=== PATIENT | female | born 1995 | race African-American/Black ===

== ENCOUNTER 2016-10-18 08:54 | Emergency (ER) | payer OTHER ==
[~2016-10-18] VITALS: Ht 165.1 cm; Wt 68.5 kg
[2016-10-18] MEDS ORDERED: NEXP1IMP SC (09:18)
[2016-10-18 11:10] LABS: BASO % 0.5 % (0.0-1.0); EOS # 0.1 K/mm3 (0.0-0.50); EOS % 2.5 % (0.0-3.0); LARGE UNSTAINED CELL # 0.1 K/mm3 (0.0-0.4); LARGE UNSTAINED CELL % 3.1 % (0.0-4.0); LYMPH # 1.8 K/mm3 (1.5-6.5); LYMPH % 41.8 % (24.0-44.0); MEAN CORPUSCULAR HEMOGLOBIN 28.1 pg (27.0-33.0); MEAN CORPUSCULAR HGB CONC 31.1 g/dl (32.0-36.5); MEAN CORPUSCULAR VOLUME 90.4 fl (80.0-96.0); MONO # 0.3 K/mm3 (0.0-0.8); MONO % 8.2 % (0.0-5.0); NEUTROPHILS # 1.7 K/mm3 (1.8-7.7); NEUTROPHILS % 43.9 % (36.0-66.0); PLATELET COUNT, AUTOMATED 339 k/mm3 (150-450); RED CELL DISTRIBUTION WIDTH 12.4 % (11.5-14.5); WHITE BLOOD COUNT 3.9 K/mm3 (4.0-10.0)
[2016-10-18 11:19] LABS: CONTROL LINE HCG INT CTR LINE PRESENT
[2016-10-18 11:27] LABS: ALBUMIN 4.1 GM/DL (3.2-5.2); ALBUMIN/GLOBULIN RATIO 1.14 (1.00-1.93); ALKALINE PHOSPHATASE 54 U/L (45-117); ALT/SGPT 65 U/L (12-78); ANION GAP 5 MEQ/L (8-16); AST/SGOT 29 U/L (15-37); BILIRUBIN,DIRECT 0.2 MG/DL (0.0-0.2); BILIRUBIN,TOTAL 0.6 MG/DL (0.2-1.0); BLOOD UREA NITROGEN 12 MG/DL (7-18); CALCIUM LEVEL 9.2 MG/DL (8.5-10.1); CARBON DIOXIDE LEVEL 31 MEQ/L (21-32); CHLORIDE LEVEL 105 MEQ/L (98-107); CREATININE FOR GFR 0.88 MG/DL (0.55-1.02); GLOMERULAR FILTRATION RATE > 60.0 (>60); GLUCOSE, FASTING 85 MG/DL (70-105); POTASSIUM SERUM 4.1 MEQ/L (3.5-5.1); SODIUM LEVEL 141 MEQ/L (136-145); TOTAL PROTEIN 7.7 GM/DL (6.4-8.2)
--- NOTE | 2016-10-18 11:35 | REP ---
LIMITED PELVIC ULTRASOUND: Real-time sonographic evaluation of the right lower quadrant performed to evaluate for possible appendicitis. The appendix could not be visualized and appendicitis cannot be excluded. The right ovary could not be visualized. No definite free fluid or fluid collection is seen. Further evaluation may be made with CT exam of the abdomen and pelvis if clinically indicated. Signed by Grant Quezada MD 10/18/2016 05:25 P
--- NOTE | 2016-10-18 12:51 | REP ---
Pelvic ultrasound including transabdominal, endovaginal and Doppler ultrasound assessment: The bladder is poorly distended. The uterus is retroverted and normal size measuring 6.8 x 4.0 x 5.2 cm. The endometrium is not thickened measuring 5.8 mm. There is a trace of endometrial fluid in the endometrial canal. The right ovary contains a 2.1 cm cyst. There is a moderate volume of free fluid in the pelvis. Including the cyst in the right ovary is upper normal size measuring 4.5 x 1.7 x 3.5 cm. The left ovary is normal size measuring 3.5 x 2.1 x 2.3 cm. There is no dominant left ovarian mass or cyst. With Doppler assessment there is vascular flow in both ovaries. The Doppler resistive index of the intraparenchymal arteries of the right ovary is 0.61 and of the left ovary is 0.56. Impression: 2.1 cm right ovarian follicle and moderate volume of free fluid in the cul-de-sac. Retroverted uterus. Signed by Grant Nelson MD 10/18/2016 12:43 P
[2016-10-18] MEDS ORDERED: ZOFR4TAB3 PO (12:52)
[2016-10-18] MEDS ORDERED: IBUP80TA PO (12:52)
[2016-10-18 12:55] VITALS: BP 121/78
== END 2016-10-18 13:02 | disposition home or self-care (01) ==
LOC: M ED 11:09
DX: R10.2 Pelvic and perineal pain (principal); N83.01 Follicular cyst of right ovary; N85.4 Malposition of uterus; R11.2 Nausea with vomiting, unspecified; R19.7 Diarrhea, unspecified; Z79.3 Long term (current) use of hormonal contraceptives

== ENCOUNTER 2019-03-29 00:51 | Emergency (ER) | payer OTHER ==
[~2019-03-29] VITALS: Ht 165.1 cm; Wt 73.8 kg
[~2019-03-29 00:51] MED LIST: IBUP80TA PO; NEXP1IMP SC; ZOFR4TAB14 PO
[2019-03-29] MEDS ORDERED: KETOROLAC 30 MG/ML VIAL (J1885) IV ONE (01:30)
[2019-03-29] MEDS ORDERED: NS 1,000 ML IV ONE (01:30)
[2019-03-29] MEDS ORDERED: ONDANSETRON 4MG/2ML VIAL (J2405) IV ONE (01:30)
[2019-03-29 01:35] LABS: BASO # 0.1 10^3/uL (0.0-0.2); BASO % 0.6 % (0.0-1.0); EOS # 0.3 10^3/uL (0.0-0.5); EOS % 3.9 % (0.0-3.0); HEMATOCRIT 39.2 % (36.0-47.0); HEMOGLOBIN 12.4 g/dl (12.0-15.5); LYMPH # 2.5 10^3/uL (1.5-5.0); LYMPH % 28.2 % (24.0-44.0); MEAN CORPUSCULAR HEMOGLOBIN 28.1 pg (27.0-33.0); MEAN CORPUSCULAR HGB CONC 31.6 g/dl (32.0-36.5); MEAN CORPUSCULAR VOLUME 88.9 fl (80.0-96.0); MONO # 0.8 10^3/uL (0.0-0.8); MONO % 8.8 % (0.0-5.0); NEUTROPHILS # 5.1 10^3/uL (1.5-8.5); NEUTROPHILS % 58.3 % (36.0-66.0); PLATELET COUNT, AUTOMATED 370 10^3/uL (150-450); RED BLOOD COUNT 4.41 10^6/uL (4.00-5.40); WHITE BLOOD COUNT 8.8 10^3/uL (4.0-10.0)
[2019-03-29 01:54] LABS: ALBUMIN 3.7 GM/DL (3.2-5.2); BILIRUBIN,DIRECT 0.1 MG/DL (0.0-0.2); BILIRUBIN,TOTAL 0.3 MG/DL (0.2-1.0); TOTAL PROTEIN 7.1 GM/DL (6.4-8.2)
--- NOTE | 2019-03-29 02:58 | REPVR ---
PROCEDURE INFORMATION: Exam: CT Abdomen and pelvis without contrast Exam date and time: 03/29/2019 1:49 AM Clinical history: 24 years old, female; Abdominal pain; Flank; Left; Additional info: Left flank pain TECHNIQUE: Imaging protocol: Computed tomography of the abdomen and pelvis without contrast. Radiation optimization: All CT scans at this facility use at least one of these dose optimization techniques: automated exposure control; mA and/or kV adjustment per patient size (includes targeted exams where dose is matched to clinical indication); or iterative reconstruction. COMPARISON: US PELVIC NON-OB COMPLETE 10/18/2016 11:58 AM FINDINGS: Liver: Normal. No mass. Gallbladder and bile ducts: Normal. No calcified stones. No ductal dilation. Pancreas: Normal. No ductal dilation. Spleen: Normal. No splenomegaly. Adrenals: Normal. No mass. Kidneys and ureters: Bilateral nonobstructive nephrolithiasis. No hydronephrosis. Stomach and bowel: No bowel obstruction. Appendix: Normal appendix. Intraperitoneal space: Unremarkable. No free air. No significant fluid collection. Vasculature: Unremarkable. No abdominal aortic aneurysm. Lymph nodes: Unremarkable. No enlarged lymph nodes. Bladder: Unremarkable as visualized. Reproductive: Intrauterine device in place. Bones/joints: Unremarkable. No acute fracture. Soft tissues: Unremarkable. IMPRESSION: 1. Bilateral nonobstructive nephrolithiasis. No hydronephrosis. 2. No bowel obstruction. Normal appendix. Electronically signed by: Andrew Arias On 03/29/2019 02:58:14 AM
[2019-03-29 03:18] VITALS: BP 142/83
[2019-03-29] MEDS ORDERED: PYRI1TAB5 PO (03:55)
[2019-03-29] MEDS ORDERED: CIPR-249 PO (03:55)
[2019-03-29] MEDS ORDERED: PHENAZOPYRIDINE 100 MG TAB PO ONE (04:00)
[2019-03-29] MEDS ORDERED: CIPROFLOXACIN 500 MG TAB PO ONE (04:00)
== END 2019-03-29 04:06 | disposition home or self-care (01) ==
LOC: M ED 00:51
DX: N10 Acute pyelonephritis (principal); N20.0 Calculus of kidney; F17.210 Nicotine dependence, cigarettes, uncomplicated
CPT/HCPCS: 74176; 80047; 80076; 81001; 83690; 84702; 85025; 87088; 87186; 96374; 96375; 99284; J1885; J2405